=== PATIENT | female | born 1935 | race Caucasian/White ===

== ENCOUNTER → 2016-04-01 | Outpatient (CLI) | payer OTHER | LOC: MMPC 11:11 | PROVIDERS: ATTEND Surgery | DX: K59.1 Functional diarrhea (principal) | CPT/HCPCS: 99212; G0463 ==

== ENCOUNTER 2017-02-26 08:20 | Observation (INO) ==
[2017-02-26] MEDS ORDERED: Sodium Chloride 0.9% 1,000 ML PRIMARY IV ONE ×3 (08:52→12:07)
--- NOTE | 2017-02-26 08:52 | PDOC ---
Syncope/Near-Syncope HPI - General Chief Complaint: Syncope / Near-Syncope Stated Complaint: PASSED OUT, SIDE PAIN Date Seen by Provider: 02/26/17 Time Seen by Provider: 08:47 - History of Present Illness Initial Comments: This is a very nice 81-year-old woman who presents to the emergency department today complaining of a syncopal episode while defecating last night. She unfortunately has multiple medical issues including congestive heart failure Alpha's disease or pacemaker morbid obesity atrial fibrillation with chronic anticoagulation and among others. Apparently over the last week or 2 she has started to feel more dizzy and lightheaded at times. She does not feel that she is any more short of breath than normal was not been having any chest pain not experiencing any palpitations but has been having some orthostatic changes as when she gets up she feels a little bit more lightheaded and then again last night she had this episode where she was on the toilet ended up having a syncopal episode that was witnessed by the daughter and once they got her up and over to the bed she felt a fair bit better but this morning continued to have some dizziness so is brought into the emergency department. - Patient Home Medications Home Medications: Home Medications Calcitriol 0.5 mcg PO DAILY 01/25/13 Fludrocortisone Acetate [Florinef Acetate] 0.1 mg PO DAILY 01/25/13 Hydrocortisone 10 mg PO BID 01/25/13 Calcium Carbonate [Calcium] 600 mg PO DAILY 06/24/13 Cyanocobalamin (Vitamin B-12) [Vitamin B-12] 2,500 mcg PO DAILY 06/24/13 Potassium Chloride [Klor-Con M20] 40 meq PO DAILY 06/24/13 Sotalol HCl [Sotalol] 80 mg PO BID 04/07/14 Multivitamin [Multi-Vitamin Daily] 1 ea PO DAILY 04/17/15 Lovastatin 20 mg PO DAILY tab 11/05/15 Eluxadoline [Viberzi] 100 mg PO .BID W/MEAL 02/09/17 Apixaban [Eliquis] 2.5 mg PO BID 02/26/17 - Patient Allergies Allergies/Adverse Reactions: Allergies 3 Allergy/AdvReac Type Severity Reaction Status Date / Time Iodinated Contrast- Oral and Allergy Intermediate RASH Verified 02/26/17 08:26 IV Dye [IV Dye, Iodine Containing Contrast ] furosemide [From Lasix] Allergy Mild HIVES Verified 02/26/17 08:26 SHELL FISH Allergy Mild HIVES Uncoded 02/26/17 08:26 Past Medical History - heen HEENT History: Cataracts, Hard of Hearing, Dentures/Partials, Other (please comment) Additional HEENT History: WEARS GLASSES Cardiovascular History: Arrhythmia, Pacemaker, Hyperlipidemia, Other (please comment) Additional Cardiovasular History: WAS FOUND TO HAVE A HOLE IN HER HEART ONE YEAR AGO. A HEART CATH PROCEDURE WAS DONE TO REPAIR THE HOLE. SHE ALSO HAD A PACER PLACED.ATRIAL FIB. 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 Musculoskeletal History: Arthritis, Back Pain, Other (please comment) Prosthesis or Implant: Yes (PACEMAKER) Additional Musculoskeletal History: BILATERAL KNEE PAIN, LEFT LEG SHORTER THAN RIGHT. Neurological History: Denies History Blood Disorders: Other (please comment) Additional Blood Disorders History: taking Eliquis Psychiatric History: Denies History History of Sexually Transmitted Diseases: No Female Reproductive History: Hysterectomy Cancer History: Denies History In Past Year Been Physically Harmed or Verbally Threatened: No History of MDRO: No History of Other Communicable Diseases: No Tobacco Use: Never Smoker Alcohol Use: None In the Past 12 Months, Have Used or Abuse Any Substance: None Previous Surgical History: Yes Type / Date of Surgery: PACEMAKER PLACEMENT, FULL HYSTERECTOMY, APPENDECTOMY, LEFT SHOULDER SURGERY, BACK SURGERY, HEART SURGERY, BILATERAL CATARACT REMOVAL, TONSILLECTOMY. Anesthesia Reactions: No Malignant Hyperthermia: No Significant Family History: No pertinent family hx Past Medical History Reviewed: Reviewed - No Changes ROS Cardiovascular: DENIES: Chest Pain Respiratory: REPORTS: Other (She is about at her baseline shortness of breath certainly no shortness of breath at rest does not complain of orthopnea) Gastrointestinal: REPORTS: Denies GI Symptoms Syncope / Near-Syncope Exam - General Appearance General Appearance: POSITIVE: Alert, Cooperative, No Acute Distress - HEENT HEENT: POSITIVE: Head Inspection Nml - Neck / Back Neck/Back: POSITIVE: Supple, Non-Tender - Respiratory Respiratory: POSITIVE: No Respiratoy Distress - Abdomen Abdomen: Soft: (All Quadrants), Normal Bowel Sounds: (All Quadrants), Denies Tenderness: (All Quadrants) - Skin Skin: POSITIVE: Intact, Normal For Race, Warm Syncope/Near-Syncope Progress - Patient's Progress MDM / ED Course: This very nice lady unfortunate his multiple medical issues she appears to have had a syncopal episode while using the toilet and is continuing to have some dizziness. I have started a workup with initial labs including a CBC CMP and a urinalysis. I will sign the patient over to oncoming ED doc. Patient Care Time - Estimated PCT Patient Care Time (In Minutes): 15 Vital Signs - Recent Vital Signs Vital Signs: Vital Signs (Last 8 hours) Temp Pulse Resp BP Pulse Ox 02/26/17 08:29 97.2 F 101 H 18 115/70 93 - VS Reviewed Vital Signs Reviewed: Yes Discharge Clinical Impression: Syncope Qualifiers: Syncope type: unspecified Qualified Code(s): R55 - Syncope and collapse Condition: Stable Follow Up With: Neil HALL [Primary Care Provider] -
[2017-02-26 09:05] LABS: BASOPHILS % (AUTO) 0.7 % (0-1); EOSINOPHILS % (AUTO) 1.6 % (0-8); Hemoglobin [HGB] 15.2 g/dL (12.0-16.0); MEAN CORPUSCULAR HEMOGLOBIN 33.7 PG (27-31); MEAN CORPUSCULAR HGB CONC 33.9 g/dL (33-37); MEAN CORPUSCULAR VOLUME 99 FL (81-99); MEAN PLATELET VOLUME 8.4 FL (7.4-12.2); MONOCYTES % (AUTO) 7.1 % (5-15); NEUTROPHILS % (AUTO) 63.7 % (50-80); RED BLOOD COUNT 4.52 10^6/uL (4.20-5.40)
[2017-02-26 09:06] LABS: BASOPHILS # (AUTO) 0.07 10*3/UL; EOSINOPHILS # (AUTO) 0.16 10*3/UL; LYMPHOCYTES # (AUTO) 2.74 10*3/uL; MONOCYTES # (AUTO) 0.72 10*3/UL (0.3-0.8); NEUTROPHILS # (AUTO) 6.48 10*3/UL; PLATELET MORPHOLOGY COMMENT NORMAL MORPHOLOGY (NORM); RBC MORPHOLOGY COMMENT NORMAL MORPHOLOGY (NORM); WBC MORPHOLOGY COMMENT NORMAL MORPHOLOGY (NORM)
[2017-02-26 09:10] LABS: BLOOD UREA NITROGEN 9 mg/dL (7-22); BUN/CREATININE RATIO 11.25 (6-20); SERUM ALBUMIN 3.3 g/dL (3.5-4.8)
[2017-02-26] MEDS ORDERED: POTASSIUM CHLORIDE 20 MEQ TAB PO ONE (09:26)
--- NOTE | 2017-02-26 09:32 | PDOC ---
Transfer of Care - Care Accepted Time Care Transferred: 09:00 Report from Transferring Physician Received: Yes (Dr. Ross) MDM / ED Course: The patient is an 81-year-old female who presents to the emergency department after a syncopal episode earlier this morning. She has a history of [place]'s as well as congestive heart failure with previous pacemaker placement in 2011. She was treated for a UTI in the emergency department 2 weeks ago with Rocephin and was discharged home on Keflex. She states for the past couple of weeks she has not felt well in general. She reports lightheadedness with standing primarily. She was seen and initially evaluated per Dr. Ross. EKG shows a paced rhythm with rate in the 90s. She was not hypotensive lying down with a blood pressure of 115/70. He had ordered CBC, CMP and UA which is pending at the time care is transferred. The patient denies any headaches, numbness or weakness in her arms or legs, chest pain, abdominal pain, urinary symptoms, fevers or chills or any other associated symptoms. 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 Her daughter has been reminding her to take her medications and she has been taking it regularly. Her daughter also gave her a stress dose of her hydrocortisone this morning. She normally takes 20 mg in the morning and her daughter gave her 40 mg this morning. Home Medications: Home Medications Calcitriol 0.5 mcg PO DAILY 01/25/13 Fludrocortisone Acetate [Florinef Acetate] 0.1 mg PO DAILY 01/25/13 Hydrocortisone 10 mg PO BID 01/25/13 Calcium Carbonate [Calcium] 600 mg PO DAILY 06/24/13 Cyanocobalamin (Vitamin B-12) [Vitamin B-12] 2,500 mcg PO DAILY 06/24/13 Potassium Chloride [Klor-Con M20] 40 meq PO DAILY 06/24/13 Sotalol HCl [Sotalol] 80 mg PO BID 04/07/14 Multivitamin [Multi-Vitamin Daily] 1 ea PO DAILY 04/17/15 Lovastatin 20 mg PO DAILY tab 11/05/15 Eluxadoline [Viberzi] 100 mg PO .BID W/MEAL 02/09/17 Apixaban [Eliquis] 2.5 mg PO BID 02/26/17 Allergies/Adverse Reactions: Allergies Iodinated Contrast- Oral and IV Dye [IV Dye, Iodine Containing Contrast ] Allergy (Intermediate, Verified 02/26/17 08:26) RASH furosemide [From Lasix] Allergy (Mild, Verified 02/26/17 08:26) HIVES SHELL FISH Allergy (Mild, Uncoded 02/26/17 08:26) HIVES - Pending Patient Care Items Pending Patient Care Items: POSITIVE: Labs - Results Reviewed Lab Results: Laboratory Results 02/26/17 02/26/17 02/26/17 Range/Units 08:37 08:45 08:45 WBC 10.2 (4.8-10.8) 10^3/uL RBC 4.52 (4.20-5.40) 10^6/uL Hgb 15.2 (12.0-16.0) g/dL Hct 45.0 (37.0-47.0) % MCV 99 (81-99) FL MCH 33.7 H (27-31) PG MCHC 33.9 (33-37) g/dL RDW Coeff of Jeannine 13.0 (11.5-14.5) % Plt Count 159 (140-350) 10*3/uL MPV 8.4 (7.4-12.2) FL Neut % (Auto) 63.7 (50-80) % Lymph % (Auto) 26.9 (10-50) % [place] % (Auto) 7.1 (5-15) % Eos % (Auto) 1.6 (0-8) % Baso % (Auto) 0.7 (0-1) % Neut # (Auto) 6.48 10*3/UL Lymph # (Auto) 2.74 10*3/uL [place] # (Auto) 0.72 (0.3-0.8) 10*3/UL Eos # (Auto) 0.16 10*3/UL Baso # (Auto) 0.07 10*3/UL WBC Morphology Comment Normal morphology (NORM) Plt Morphology Comment Normal morphology (NORM) RBC Morph Comment Normal morphology (NORM) Sodium 143 (135-145) meq/L Potassium 3.1 L (3.8-5.2) meq/L Chloride 106 (98-112) meq/L Carbon Dioxide 26 (23-33) meq/L Anion Gap 11 (5-20) BUN 9 (7-22) mg/dL Creatinine 0.8 (0.50-1.20) mg/dL BUN/Creatinine Ratio 11.25 (6-20) Glucose 131 H (78-110) mg/dL Calculated Osmolality 296.0 H (267-292) mOsm/kg Calcium 9.2 (8.7-10.7) mg/dL Magnesium (1.6-2.4) mg/dL Total Bilirubin 1.2 (0.3-1.2) mg/dL AST 27 (8-39) IU/L ALT 33 (9-52) IU/L Alkaline Phosphatase 52 (38-126) IU/L Troponin I Handheld (< 0.040) ng/mL Total Protein 6.0 L (6.1-8.0) g/dL Albumin 3.3 L (3.5-4.8) g/dL Globulin 2.7 (2.50-4.10) g/dL Albumin/Globulin Ratio 1.20 L (1.3-2.0) mg/g TSH (0.2700-4.2000) uIU/mL Free T4 (0.93-1.71) ng/dL Ur Collection Type Clean catch urine Urine Color Yellow (Y) Urine Clarity Clear (CLEAR) Urine pH 6.5 (5.0-8.5) Ur Specific [place] <=1.005 (1.005-1.030) Urine Protein Negative (NEG) mg/dl Urine Glucose (UA) Negative (NEG) mg/dL Urine Ketones Negative (NEG) Urine Occult Blood Negative (NEG) Urine Nitrate Negative (NEG) Urine Bilirubin Negative (NEG) Urine Urobilinogen 0.2 (0.2) EU/dL Ur Leukocyte Esterase Trace (NEG) Urine RBC 1-3 (NONE) /hpf Urine WBC 4-6 (NONE) Ur Squamous Epith Cells Rare (NONE) Ur Renal Epithelial Cell None (NONE) Urine Crystals None Urine Bacteria Rare (NONE) Urine Casts None (NONE) Urine Mucus None (NONE) Urine Trichomonas None (NONE) Urine Yeast None (NONE) Ur Culture Indicated? Culture not set 02/26/17 02/26/17 02/26/17 Range/Units 08:45 09:23 09:26 WBC (4.8-10.8) 10^3/uL RBC (4.20-5.40) 10^6/uL Hgb (12.0-16.0) g/dL Hct (37.0-47.0) % MCV (81-99) FL MCH (27-31) PG MCHC (33-37) g/dL RDW Coeff of Jeannine (11.5-14.5) % Plt Count (140-350) 10*3/uL MPV (7.4-12.2) FL Neut % (Auto) (50-80) % Lymph % (Auto) (10-50) % [place] % (Auto) (5-15) % Eos % (Auto) (0-8) % Baso % (Auto) (0-1) % Neut # (Auto) 10*3/UL Lymph # (Auto) 10*3/uL [place] # (Auto) (0.3-0.8) 10*3/UL Eos # (Auto) 10*3/UL Baso # (Auto) 10*3/UL WBC Morphology Comment (NORM) Plt Morphology Comment (NORM) RBC Morph Comment (NORM) Sodium (135-145) meq/L Potassium (3.8-5.2) meq/L Chloride (98-112) meq/L Carbon Dioxide (23-33) meq/L Anion Gap (5-20) BUN (7-22) mg/dL Creatinine (0.50-1.20) mg/dL BUN/Creatinine Ratio (6-20) Glucose (78-110) mg/dL Calculated Osmolality (267-292) mOsm/kg Calcium (8.7-10.7) mg/dL Magnesium 1.6 (1.6-2.4) mg/dL Total Bilirubin (0.3-1.2) mg/dL AST (8-39) IU/L ALT (9-52) IU/L Alkaline Phosphatase (38-126) IU/L Troponin I Handheld 0.010 (< 0.040) ng/mL Total Protein (6.1-8.0) g/dL Albumin (3.5-4.8) g/dL Globulin (2.50-4.10) g/dL Albumin/Globulin Ratio (1.3-2.0) mg/g TSH 2.98 (0.2700-4.2000) uIU/mL Free T4 1.46 (0.93-1.71) ng/dL Ur Collection Type Urine Color (Y) Urine Clarity (CLEAR) Urine pH (5.0-8.5) Ur Specific [place] (1.005-1.030) Urine Protein (NEG) mg/dl Urine Glucose (UA) (NEG) mg/dL Urine Ketones (NEG) Urine Occult Blood (NEG) Urine Nitrate (NEG) Urine Bilirubin (NEG) Urine Urobilinogen (0.2) EU/dL Ur Leukocyte Esterase (NEG) Urine RBC (NONE) /hpf Urine WBC (NONE) Ur Squamous Epith Cells (NONE) Ur Renal Epithelial Cell (NONE) Urine Crystals Urine Bacteria (NONE) Urine Casts (NONE) Urine Mucus (NONE) Urine Trichomonas (NONE) Urine Yeast (NONE) Ur Culture Indicated? - Consult Recommendations:: Orthostatic vital signs were ordered and she is still lightheaded with standing and her blood pressure did drop from the 120s sitting into the 90s standing systolic. Her pulse also went up into the 1 teens with standing. She did receive a 1 L bolus of normal saline. Magnesium, troponin, TSH and free T4 were ordered in addition to labs previously ordered. After administration of fluids she was no longer orthostatic and her dizziness had improved. She continued however to have significant generalized weakness. Her lab work is all unremarkable except for a low potassium of 3.1. She did receive potassium 20 mEq by mouth. The patient and her family did not feel that she was strong enough to go home at this point. I subsequently discussed the patient with Dr. Moe and he has agreed to admit the patient. Patient Care Time - Estimated PCT Patient Care Time (In Minutes): 25 Vital Signs - Recent Vital Signs Vital Signs: Vital Signs (Last 8 hours) Pulse Pulse Pulse BP BP BP 02/26/17 11:28 89 105 H 106 H 103/80 112/86 100/78 - VS Reviewed Vital Signs Reviewed: Yes Discharge Clinical Impression: Weakness, Hypokalemia Syncope Qualifiers: Syncope type: unspecified Qualified Code(s): R55 - Syncope and collapse Discharge Disposition: Admit to Observation Condition: Fair
[2017-02-26 11:34] LABS: BILIRUBIN,URINE NEGATIVE (NEG); CLARITY,URINE CLEAR (CLEAR); COLOR,URINE YELLOW (Y); GLUCOSE, URINE (UA) NEGATIVE (NEG); NITRATE,URINE NEGATIVE (NEG); OCCULT BLOOD,URINE NEGATIVE (NEG); PH,URINE 6.5 (5.0-8.5); PROTEIN,URINE NEGATIVE (NEG); UROBILINOGEN,URINE 0.2 EU/dL (0.2)
[2017-02-26 11:46] LABS: BACTERIA,URINE RARE; SQUAMOUS EPITHELIAL CELL,UR RARE; URINE SAMPLE TYPE CLEAN CATCH URINE
[2017-02-26] MEDS ORDERED: LIDOCAINE W/ SODIUM BICARB 0.5 ML SYR SUBD PRN (12:07)
[2017-02-26] MEDS ORDERED: ONDANSETRON 4 MG/2 ML VIAL IVP PRN (12:07)
[2017-02-26] MEDS ORDERED: Promethazine Tab 25 MG TAB PO PRN (12:07)
[2017-02-26] MEDS ORDERED: Magnesium Sulfate 2gm (Premix) 2 GM/50 ML BAG IV ONE ×3 (12:07→23:40)
[2017-02-26] MEDS ORDERED: NORMAL SALINE 10 ML SYRINGE FLUSH IVP PRN (12:07)
[2017-02-26] MEDS ORDERED: SODIUM CHLORIDE 0.9% IV ONE (12:10)
[2017-02-26] MEDS ORDERED: HYDROCORTISONE SOD SUCC IV ONE (12:10)
--- NOTE | 2017-02-26 12:19 | PDOC ---
HPI - History of Present Illness History of Present Illness: very nice 81 yo female with hx of Afib on sotalol and eliquis. got up this morning from bed felt dizzy then tried to wak to another room felt light headed and fell sustaining a syncopal episode. Pt also as Addisons disease. and recently d/c from hospital for a UTI.denies chest pain/nausea and vomiting.lives at home Past Medical History Medical History: 1. [place]'s disease, has seen 3 different endocrinologists in the last year, 2 in [place], both of whom apparently have been questioning the diagnosis of [place]'s disease and it then titrating steroids. 2. Atrial fibrillation, on Eliquis for stroke prevention., Status post pacemaker as well. 3. Vitamin D deficiency. 4. Chronic back pain Surgical History: Back surgery Pertinent Family History: Significant for emphysema in her dad. Her mom apparently of old age at 87. Past Social History: Does not smoke or drink. 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 Has 6 children. Lives here in [place], [place]. Sees a primary care provider in [place]. Tobacco Use: Never Smoker In the Past 12 Months, Have Used or Abuse Any of the Following Substance: None Medication / Allergies Home Medications: Home Medications Medication Instructions Recorded Confirmed Type Calcitriol 0.5 mcg PO DAILY 01/25/13 02/26/17 History Fludrocortisone Acetate [Florinef 0.1 mg PO DAILY 01/25/13 02/26/17 History Acetate] Hydrocortisone 10 mg PO BID 01/25/13 02/26/17 History Calcium Carbonate [Calcium] 600 mg PO DAILY 06/24/13 02/26/17 History Cyanocobalamin (Vitamin B-12) 2,500 mcg PO DAILY 06/24/13 02/26/17 History [Vitamin B-12] Potassium Chloride [Klor-Con M20] 40 meq PO DAILY 06/24/13 02/26/17 History Sotalol HCl [Sotalol] 80 mg PO BID 04/07/14 02/26/17 History Multivitamin [Multi-Vitamin Daily] 1 ea PO DAILY 04/17/15 02/26/17 History Lovastatin 20 mg PO DAILY tab 11/05/15 02/26/17 History Eluxadoline [Viberzi] 100 mg PO .BID W/MEAL 02/09/17 02/26/17 History Apixaban [Eliquis] 2.5 mg PO BID 02/26/17 02/26/17 History Allergies/Adverse Reactions: Allergies 3 Allergy/AdvReac Type Severity Reaction Status Date / Time Iodinated Contrast- Oral and Allergy Intermediate RASH Verified 02/26/17 08:26 IV Dye [IV Dye, Iodine Containing Contrast ] furosemide [From Lasix] Allergy Mild HIVES Verified 02/26/17 08:26 SHELL FISH Allergy Mild HIVES Uncoded 02/26/17 08:26 Review of Systems - Review of Systems All Systems: Reviewed & No Additional Complaints Except as Stated - Constitutional Constitutional: REPORTS: General Health Fair - Respiratory Respiratory: DENIES: Negative System Review, Cough, Sputum, Dyspnea At Rest, Dyspnea with Exertion, Pleuritic Pain, Hemoptysis, Wheezing, Other, See HPI - Cardiovascular Cardiovascular: REPORTS: Syncope. DENIES: Chest Pain, Palpitations - Gastrointestinal Gastrointestinal / Abdominal: DENIES: Negative System Review, Nausea, Vomiting, Diarrhea, Constipation, Abdominal Pain, Bloody Stool, Poor Appetite, Heartburn, Regurgitation, Bloating, Lactose Intolerance, Melena, Bright Red Blood per Rectum, Other, See HPI - Genitourinary Genitourinary: DENIES: Negative System Review, Pain, Burning, Hematuria, Incontinence, Urgency, Hesitant Stream, Decreased Stream, Nocutria, Discharge, Sexual Dysfunction, Other, See HPI - Neurological Neurologic: REPORTS: Dizziness Exam - Vitals Vital Signs: Vital Signs Temperature 97.2 F Pulse Rate [Pulse Oximeter] 101 Pulse Rate [Lying] 89 Pulse Rate [Standing] 106 Pulse Rate [Sitting] 105 Respiratory Rate 18 Blood Pressure [Lying] 103/80 Blood Pressure [Standing] 100/78 Blood Pressure [Sitting] 112/86 Blood Pressure [Left Arm] 115/70 Pulse Ox 93 Oxygen Delivery Method Room Air Height 5 ft 6 in Weight 185 lb - General General Appearance: No Acute Distress, Cooperative - Head Additional Head Exam Details: bruise under left eye - ENT ENT Exam: POSITIVE: Normal Exam, Normal External Ear Exam, Normal Oropharynx, TM 's Normal Bilaterally, Mucous Membranes Moist - Neck Neck Exam: Normal Inspection, Full ROM, No Tenderness, No Lymphadenopathy, No Thyromegaly, JVP is not Raised - Respiratory Respiratory Exam: POSITIVE: Clear to Auscultation - Bilaterally, Breathing Non Labored, Normal To Percussion, Normal to Percussion and Palpation - Cardiovascular Cardiovascular Exam: POSITIVE: RRR, No Murmur, No Clicks, No Gallops, No Rubs, PMI Non-Displaced - GI/Abdominal GI/Abdominal Exam: POSITIVE: Normal Bowel Sounds, Non Tender, Non Distended, Soft, No Masses, No Hepatomegaly, No Splenomegaly, No Organomegaly - Rectal Rectal Exam: POSITIVE: Deferred - Extremities Extremities Exam: POSITIVE: Normal Inspection, Full ROM, Normal Capillary Refill , No Clubbing Present, No Edema Present, No Cyanosis Present, Negative Marcela's sign, Dosalis Pedis Pulses - Stong & Regular - Neurological Neurological Exam: POSITIVE: Alert, Oriented x 3, Reflexes Normal, Normal Gait, CN II-XII Intact, No Facial Droop, Speech Intact / Clear, Moves All Extremities Equally, No Fasciculations, No Clonus - Psychiatric Psychiatric Exam: POSITIVE: Normal Affect, Normal Mood - Integumentary Integumentary Exam: POSITIVE: Normal Color, Warm, Dry, Intact Results - Labs CBC and BMP: 02/26/17 08:45 02/26/17 08:45 Assessment and Plan - Patient Problems (1) Syncope Current Visit: Yes Status: Acute Comment: most likely multi factorial. 1-sotalol. 2-viberzi. 3- dehydration. 4- low mg. 5- low k. will rule out with serial trops,stop viberzi,NSS with 20 k at 125 cc hour. plus potassium 40 bid po. 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
--- NOTE | 2017-02-26 12:34 | EKG ---
[address] [address] Measurements Intervals [place] Rate: 95 P: CA: 0 QRS: 53 QRSD: 89 T: -33 QT: 360 QTc: 412 Interpretive Statements ATRIAL FIBRILLATION WITH ELECTRONIC VENTRICULAR PACEMAKER NONSPECIFIC ST & T-WAVE ABNORMALITY Compared to ECG 02/09/2017 16:57:54 T-wave abnormality now present Electronically Signed On 02-26-17 13:13:34 MST by Skinny Fairbanks [id number]
[2017-02-26] MEDS ORDERED: HYDROCORTISONE 100 MG/2 ML IVP ONE (16:55)
[2017-02-26] MEDS: Apixaban Tab 2.5 MG TABLET PO SCH (20:10)
[2017-02-26] MEDS: HYDROCORTISONE 10 MG PO SCH (20:10)
[2017-02-26] MEDS: Sotalol Tab 80 MG TAB PO SCH (20:10)
[2017-02-26] MEDS ORDERED: POTASSIUM CHLORIDE 20 MEQ TAB PO SCH (21:00)
[2017-02-27 06:14] LABS: BLOOD UREA NITROGEN 7 mg/dL (7-22); BUN/CREATININE RATIO 11.66 (6-20)
[2017-02-27 06:18] LABS: Hematocrit [HCT] 39.4 % (37.0-47.0); Hemoglobin [HGB] 13.5 g/dL (12.0-16.0); MEAN CORPUSCULAR HEMOGLOBIN 33.8 PG (27-31); MEAN CORPUSCULAR HGB CONC 34.2 g/dL (33-37); MEAN CORPUSCULAR VOLUME 99 FL (81-99); RED BLOOD COUNT 3.99 10^6/uL (4.20-5.40)
[2017-02-27 06:19] LABS: BASOPHILS # (AUTO) 0.01 10*3/UL; BASOPHILS % (AUTO) 0.2 % (0-1); EOSINOPHILS # (AUTO) 0.05 10*3/UL; EOSINOPHILS % (AUTO) 0.7 % (0-8); LYMPHOCYTES # (AUTO) 1.35 10*3/uL; MEAN PLATELET VOLUME 8.6 FL (7.4-12.2); MONOCYTES # (AUTO) 0.17 10*3/UL (0.3-0.8); MONOCYTES % (AUTO) 2.5 % (5-15); NEUTROPHILS % (AUTO) 76.4 % (50-80); PLATELET MORPHOLOGY COMMENT NORMAL MORPHOLOGY (NORM); RBC MORPHOLOGY COMMENT NORMAL MORPHOLOGY (NORM); WBC MORPHOLOGY COMMENT NORMAL MORPHOLOGY (NORM)
[2017-02-27] MEDS: Apixaban Tab 2.5 MG TABLET PO SCH ×2 (08:45→20:38)
[2017-02-27] MEDS: POTASSIUM CHLORIDE 20 MEQ TAB PO SCH (08:45)
[2017-02-27] MEDS: HYDROCORTISONE 10 MG PO SCH ×2 (08:45→20:38)
[2017-02-27] MEDS: FLUDROCORTISONE ACETATE 0.1 MG TABLET PO SCH (08:45)
[2017-02-27] MEDS: CALCIUM CARBONATE 500 MG (TUMS) CHEWABLE TABLET PO SCH (08:45)
[2017-02-27] MEDS: Sotalol Tab 80 MG TAB PO SCH (08:46)
[2017-02-27] MEDS: CYANOCOBALAMIN 1000 MCG PO SCH (08:46)
[2017-02-27] MEDS: CALCITRIOL 0.25 MCG CAPSULE PO SCH (08:46)
--- NOTE | 2017-02-27 12:41 | PDOC(PROG) ---
Interval History: Feels much better today not dizzy as been walking to the bathroom without any symptoms. I talked to her deck cadet and according to the family patient has been having more dementia and cognitive impairment and dizziness all side effects from her lovastatin and sotalol deck cadet agreed to stop both and start Cardizem 120 instead of the family and patient on agreement Objective : Data - Labs CBC and BMP: 02/27/17 06:00 02/27/17 06:00 Objective : Exam - General General Appearance: Cooperative - Cardiovascular Cardiovascular Exam: RRR, No Murmur, No Clicks, No Gallops, No Rubs, PMI Non- Displaced - GI/Abdominal GI/Abdominal Exam: Normal Bowel Sounds, Non Tender, Non Distended, Soft, No Masses, No Hepatomegaly, No Splenomegaly, No Organomegaly - Extremities Extremities Exam: No Clubbing Present, No Edema Present Assessment and Plan - Patient Problems (1) Syncope Current Visit: Yes Status: Acute Comment: Resolved most likely multifactorial dehydration low electrolytes and sotalol we have stopped his sotalol at present time Code(s): R55 - Syncope and collapse Qualifiers: Syncope type: unspecified Qualified Code(s): R55 - Syncope and collapse (2) Dehydration Current Visit: No Status: Acute Comment: Continue to hydrate Code(s): E86.0 - Dehydration (3) Weakness Current Visit: Yes Status: Acute Comment: Patient feels much stronger today Code(s): R53.1 - Weakness (4) Addisons disease Current Visit: No Status: Chronic Comment: Continue current medication 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
[2017-02-28] MEDS ORDERED: MORPHINE SULFATE 2 MG/1 ML ONE (02:05)
[2017-02-28] MEDS: MORPHINE SULFATE 2 MG/1 ML IVP PRN ×2 (02:06→07:49)
[2017-02-28 06:32] LABS: BLOOD UREA NITROGEN 8 mg/dL (7-22); BUN/CREATININE RATIO 13.33 (6-20); MAGNESIUM 1.7 mg/dL (1.6-2.4); SERUM ALBUMIN 2.9 g/dL (3.5-4.8)
[2017-02-28] MEDS: DILTIAZEM HCL CD 120 MG CAP PO SCH ×2 (07:09→09:56)
[2017-02-28] MEDS ORDERED: Magnesium Sulfate 2gm (Premix) 2 GM/50 ML BAG IV ONE (07:14)
--- NOTE | 2017-02-28 08:25 | EKG ---
[address] [address] Measurements Intervals [place] Rate: 100 P: SD: 0 QRS: 88 QRSD: 82 T: 8 QT: 347 QTc: 404 Interpretive Statements ATRIAL FIBRILLATION WITH RAPID VENTRICULAR RESPONSE WITH VENTRICULAR PACEMAKER NONSPECIFIC ST-T CHANGES ABNORMAL RHYTHM ECG Compared to ECG 02/26/2017 08:31:53 No significant change Electronically Signed On 02-28-17 11:13:31 MST by Skinny Fairbanks [email or web address] [id number]
[2017-02-28] MEDS: CALCIUM CARBONATE 500 MG (TUMS) CHEWABLE TABLET PO SCH (08:38)
[2017-02-28] MEDS: FLUDROCORTISONE ACETATE 0.1 MG TABLET PO SCH (08:38)
[2017-02-28] MEDS: Apixaban Tab 2.5 MG TABLET PO SCH (08:38)
[2017-02-28] MEDS: CALCITRIOL 0.25 MCG CAPSULE PO SCH (08:38)
[2017-02-28] MEDS: POTASSIUM CHLORIDE 20 MEQ TAB PO SCH (08:38)
[2017-02-28] MEDS: CYANOCOBALAMIN 1000 MCG PO SCH (08:40)
[2017-02-28] MEDS: HYDROCORTISONE 10 MG PO SCH (10:13)
[2017-02-28] MEDS ORDERED: HYDROCORTISONE 100 MG/2 ML IVP ONE (10:16)
--- NOTE | 2017-02-28 11:01 | DCSUMMARY ---
Hospitalization Summary Hospital Course: Final Discharge Diagnosis: Current Visit Problems Problem Status Onset Code Hypokalemia Acute E87.6 Weakness Acute R53.1 Syncope Acute R55 Diagnostic Data, Laboratory Data, and Procedures of Signifigance: Laboratory Results 02/28/17 02/28/17 Range/Units 06:10 08:20 Sodium 143 (135-145) meq/L Potassium 4.3 (3.8-5.2) meq/L Chloride 114 H (98-112) meq/L Carbon Dioxide 20 L (23-33) meq/L Anion Gap 9 (5-20) BUN 8 (7-22) mg/dL Creatinine 0.6 (0.50-1.20) mg/dL BUN/Creatinine Ratio 13.33 (6-20) Glucose 102 (78-110) mg/dL Calculated Osmolality 293.0 H (267-292) mOsm/kg Calcium 7.8 L (8.7-10.7) mg/dL Magnesium 1.7 (1.6-2.4) mg/dL Total Bilirubin 1.0 (0.3-1.2) mg/dL AST 36 (8-39) IU/L ALT 32 (9-52) IU/L Alkaline Phosphatase 40 (38-126) IU/L Troponin I < 0.012 (< 0.040) ng/mL Total Protein 5.4 L (6.1-8.0) g/dL Albumin 2.9 L (3.5-4.8) g/dL Globulin 2.5 (2.50-4.10) g/dL Albumin/Globulin Ratio 1.10 L (1.3-2.0) mg/g History and Physical pertinent to Admission: Course of Hospitalization: This very nice 81-year-old female who comes in because of syncope. She states that she feels dizzy when she walks from her bed to other rooms at home. Also she was found to be dehydrated with low magnesium and low potassium. Troponins were negative 3 patient was rehydrated and electrolytes were replaced she was given extra doses of hydrocortisone IV. Patient was not dizzy any longer she does also have pulmonary hypertension diagnosis and that it gets very tired when she walks. I have walked her and checked her sats she desats down to 77 on ambulation but at rest comes right back up to the night up above 90. I believe this might be another reason why she might have passed out because of hypoxia when on ambulation inside her house we will discharge her home with oxygen on ambulation. 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 Rice and has decided to stop the sotalol and the lovastatin also because she is having some component of dementia which was observed by the family members. She will be discharged home in stable and improved condition she will do PT OT as an outpatient her family will be taking care her 24 7 both daughters which had a meeting with also discussed with nursing on agreement On the date of discharge, the patient was examined: Gen.: No acute distress, alert, nontoxic Heart: Regular rate and rhythm, no murmurs, clicks, gallops, or rubs Lungs: Clear to auscultation bilaterally, breathing is nonlabored Abdomen/GI: Normal tones on auscultation, soft, nontender, nondistended Musculoskeletal/extremities: No clubbing, cyanosis, or edema Vitals reviewed and are listed below Assessment and Plan: 1. As per discharge assessments above 2. Disposition: 3. Condition on discharge, stable and improved. 4. Diet: regular diet 5. Activities: resume normal activities 6. Follow-Up: 1. PCP 2. 7. Medications at the Time of Discharge: Home Medications Medication Instructions Recorded Confirmed Type Calcitriol 0.5 mcg PO DAILY 01/25/13 02/26/17 History Fludrocortisone Acetate [Florinef 0.1 mg PO DAILY 01/25/13 02/26/17 History Acetate] Hydrocortisone 10 mg PO BID 01/25/13 02/26/17 History Calcium Carbonate [Calcium] 600 mg PO DAILY 06/24/13 02/26/17 History Cyanocobalamin (Vitamin B-12) 2,500 mcg PO DAILY 06/24/13 02/26/17 History [Vitamin B-12] Potassium Chloride [Klor-Con M20] 40 meq PO DAILY 06/24/13 02/26/17 History Multivitamin [Multi-Vitamin Daily] 1 ea PO DAILY 04/17/15 02/26/17 History Apixaban [Eliquis] 2.5 mg PO BID 02/26/17 02/26/17 History Diltiazem 24Hr ER [Cardizem Cd] 120 mg PO DAILY #30 cap.sr.24h 02/28/17 Rx 3 Generic Name Dose Route Start Last Admin Trade Name Freq PRN Reason Stop Dose Admin Apixaban 2.5 mg 02/26/17 21:00 02/28/17 08:38 Eliquis PO 2.5 mg BID DEEPAK Administration Calcitriol 0.5 mcg 02/27/17 09:00 02/28/17 08:38 Rocaltrol PO 0.5 mcg DAILY DEEPAK Administration Calcium Carbonate 1 tab 02/27/17 09:00 02/28/17 08:38 Tums PO 1 tab DAILY DEEPAK Administration Diltiazem HCl 120 mg 02/28/17 09:00 02/28/17 09:56 Cardizem Cd PO Not Given DAILY DEEPAK Fludrocortisone Acetate 0.1 mg 02/27/17 09:00 02/28/17 08:38 Florinef Acetate PO 0.1 mg DAILY DEEPAK Administration Potassium Chloride/Sodium Chloride 1,000 mls @ 125 mls/hr 02/26/17 17:00 07/12 02:40 Pot Chl 20meq + Ns PRIMARY IV 125 mls/hr .Q8H DEEPAK Administration Morphine Sulfate 1 mg 02/28/17 01:58 02/28/17 07:49 Morphine Inj IVP 1 mg Q2H PRN Administration Pain Non-Formulary Drug ( 2,500 mcg 02/27/17 09:00 02/28/17 08:40 Cyanocobalamin ( PO 2,500 mcg Vitamin B-12) [ DAILY DEEPAK Administration Vitamin B-12] 1000mcg Own Med : 20 mg 03/01/17 09:00 02/28/17 09:15 Hydrocortisone 10 Mg PO 20 mg Tablet DAILY DEEPAK Administration Own Med : 1 02/28/17 15:00 Hydrocortisone 10 Mg PO Tablet DAILY@1500 [facility] Potassium Chloride 40 meq 02/27/17 09:00 02/28/17 08:38 Klor-Con PO 40 meq DAILY DEEPAK Administration 8. Time, care, counseling and coordination of care for this discharge is greater than 30 minutes. Exam - Vitals Vital Signs: Vital Signs Temperature 97.6 F Temperature Source Temporal Artery Scan Pulse Rate [Pulse Oximeter] 81 Pulse Rate 86 Respiratory Rate 18 Blood Pressure [Left Arm] 150/95 Pulse Ox 93 Oxygen Delivery Method Room Air Height 5 ft 6 in Weight 207 lb 9.6 oz Patient Problems - Patient Problem List (1) Syncope Current Visit: Yes Status: Acute Code(s): R55 - Syncope and collapse Qualifiers: Syncope type: unspecified Qualified Code(s): R55 - Syncope and collapse Category: Medical (2) Dehydration Current Visit: No Status: Acute Code(s): E86.0 - Dehydration Category: Medical (3) Weakness Current Visit: Yes Status: Acute Code(s): R53.1 - Weakness Category: Medical (4) Addisons disease Current Visit: No Status: Chronic 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
[2017-02-28 11:30] VITALS: BP 138/85; RESP 17; TEMP 97.7; O2SAT 94
--- NOTE | 2017-02-28 14:28 | PTI REPORT ---
Thank you for the referral of Megan Hastings. She was seen on 02/28/17 for an inpatient evaluation secondary to generalized weakness. SUBJECTIVE: The patient is an 81-year-old female. The patient reports that she lives in [place] by herself. 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 The patient fell recently and ended up in the hospital. She was found in her bathroom by her daughter. The patient lives in a single story home. She has stairs to her basement but doesn't use them. She uses her garage for entrance and has three steps into the home. The patient uses a four wheeled walker to get around. The patient has had a back surgery that sometimes causes her issues. The patient's daughter reports that Megan gets short of breath when walking and sometimes her lips turn blue, so we will monitor that. The patient has help for all ADLs; she can do minimal cooking. The patient's daughter is concerned about her medications and her ability to take them by herself. The patient reports pain on her left side today. PAST MEDICAL HISTORY: Past medical history can be found in the patient's medical record. OBJECTIVE FINDINGS: General observations: The patient was supine in bed with nursing present. The patient is on IV. Bed mobility: The patient required hand hold assist x1 for bed mobility from supine to sitting edge of bed. Transfers: The patient required contact guard assist x1 with walker for sit to stand transfer. The patient required moderate cueing for stand to sit transfer with proper hand placement with walker. Ambulation: The patient is able to ambulate approximately 10 feet with contact guard assist x2 for line and lead management with walker. Strength: Manual muscle testing revealed strength of 5/5 in bilateral lower extremities with normal and intact dermatomes. ASSESSMENT: The patient is an 81-year-old female that presents with generalized weakness. The patient would benefit from therapy to improve strength, mobility, and to improve functional mobility to return home safely. The patient's prognosis for therapy is fair. Problem List: Decreased strength Decreased independence Decreased functional mobility Short-Term Goals: To be met by discharge from inpatient: Patient will be independent with all transfers. Patient will be able to ambulate 150 feet with contact guard assist with least restrictive assistive device. Patient will be able to ascend and descend three stairs in order to return home safely. Long-Term Goals: To be met following discharge from inpatient: Patient may benefit from outpatient physical therapy but ultimately will be able to return to prior level of function. TREATMENT PLAN: Patient will be seen B.I.D during the week and one time per day over the weekend as an inpatient for therapeutic exercises, modalities as needed, gait training, and functional activity. INITIAL TREATMENT: Treatment today consisted of the initial evaluation. The patient's IV malfunctioned and the patient was left with nursing staff present in the room. DINA
[2017-02-28] MEDS ORDERED: HYDROCORTISONE 10 MG PO SCH (15:00)
--- NOTE | 2017-03-02 09:37 | OTI REPORT ---
Thank you for the referral of Megan Hastings. She was seen on 02/28/17 for an occupational therapy inpatient evaluation secondary to weakness. SUBJECTIVE: The patient is an 81-year-old female who is being seen today secondary to weakness. 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 The patient does live in [place] by herself. Her daughter was present during the initial evaluation today and stated that family members usually stay with the patient when she is not doing well. Another daughter comes and stays with Megan when she is working at the [employer]. When she is not working, other family members will come and check on her. One of Megan's daughters found her in the bathroom. She had fallen. They are thinking low blood pressure may be the cause of this. The patient reports that she typically lives at home most of the time and goes to the doctor once in a while. She states that she has three steps to get into her home. The bathroom is set up with a tub/shower combo and a shower chair, a comfort height toilet, and grab bars. She usually uses a four wheeled walker. The patient reports she did have a back surgery and dressing of the lower extremities is a little bit difficult, especially with her left lower extremity; she states she is having more difficulty with the left leg than the right leg. The patient has assistance with laundry, cleaning , grocery shopping, and driving. She does some minimal cooking/simple meal prep , but for the most part her children help her with meals. She does get shot of breath when walking. She has not had to be on oxygen. The patient reports she is swallowing food and liquids normally. She reports that her family helps set up her medications on a weekly basis; however, her daughter states when she calls her mom to see if she has taken her medications, her mother will tell her she has taken her medications, but when the daughter goes to her mother's house , she finds she has not taken her medications. PAST MEDICAL HISTORY: Past medical history can be found in the patient's medical record. OBJECTIVE FINDINGS: Bed mobility: The patient was able to come from supine to sit independently. Range of motion: While sitting edge of bed the patient had upper extremity range of motion that was within functional limits. Strength: Strength for shoulder flexion was 4/5, abduction was 4/5, extension was 4+/5, elbow flexion/extension was 4+/5, wrist flexion/extension was 4+/5. Transfers: The patient is able to functionally transfer with stand by assistance. Activities of daily living: The patient was able to doff and don her socks independently with slightly increased time on the left side. Pain: The patient reports that she does have some pain in her back which she rates as a 2/10 on the verbal analog scale (0=no pain, 10=worst pain). ASSESSMENT: The patient would benefit from skilled occupational therapy to address some cognitive testing. The patient's family does report that she is having some cognitive difficulties. Problem List: Decreased strength Decreased ability to perform functional transfers Short-Term Goals: To be met by discharge from inpatient: Patient will be able to dress self independently. Patient will increase upper extremity strength to 4+/5. Patient will be able to perform toilet transfers and shower transfers independently. Long-Term Goals: To be met following discharge from inpatient: Patient will be discharged home, demonstrating safety and independence with all functional ADLs and transfers. TREATMENT PLAN: Patient will be seen B.I.D during the week and one time per day over the weekend as an inpatient to address the above goals and objectives. INITIAL TREATMENT: Treatment today consisted of the initial evaluation followed by the patient performing dressing activities while seated edge of bed. She performed upper extremity range of motion and a functional transfer from bed to chair with stand by assistance. DINA
== END 2017-02-28 14:10 | disposition home or self-care (01) ==
LOC: MED/SURG 08:20 → ER 08:20 → MED/SURG 12:50
PROVIDERS: ADMIT Internal Medicine; ATTEND Internal Medicine